=== PATIENT | male | born 1945 | race Caucasian/White ===

== ENCOUNTER → 2017-05-03 08:58 | Outpatient (CLI) | payer MEDICARE, OTHER, SELFPAY ==
[2017-05-03 10:40] LABS: Absolute Lymphocyte Count 1.47 X10^3/ul (0.83-4.51); Absolute Neutrophil Count 4.3 X10^3/uL (2.0-7.7); Basophil# 0.02 X10^3/uL; Basophil% 0.3 % (0-1); Eosinophil# 0.11 X10^3/uL; Eosinophils% 1.7 % (0-5); Hemoglobin 13.9 g/dl (13.0-16.5); Lymphocyte # 1.47 X10^3/ul (4.0); Mean Corp Hgb Conc 32.3 g/gl (32-36); Mean Corpuscular Hgb 30.2 pg (27.0-32.0); Mean Corpuscular Volume 93.5 fL (80-94); Mean Platelet Vol. 10.1 fl (6.2-12.0); Monocyte# 0.46 X10^3/uL; Monocyte% 7.2 % (0-10); Neutrophil # 4.33 X10^3/uL (2.7-7.7); Neutrophil % 67.6 % (47-70); Platelet Count 190 K/mm3 (150-450); RBC Distribution Width CV 13.2 % (11.6-14.6); RBC Distribution Width SD 44.5 fl (35.1-43.9); White Blood Count 6.4 K/mm3 (4.4-11.0)
[2017-05-03 10:41] LABS: POSITIVE COUNT NO; POSITIVE DIFFERENTIAL NO; POSITIVE MORPHOLOGY NO
[2017-05-03 10:51] LABS: Erythrocyte Sedimentation Rate 20 mm/hr (0-20)
[2017-05-03 13:34] LABS: CRP 8.06 mg/L (0.0-3.0)
== END ==
PROVIDERS: Family Provider Family Medicine; PCP Family Medicine; Visit Provider Orthopaedic Surgery
DX: M25.561 Pain in right knee (principal); M25.562 Pain in left knee; Z96.653 Presence of artificial knee joint, bilateral; Z47.1 Aftercare following joint replacement surgery
CPT/HCPCS: 36415; 85025; 85652; 86140

== ENCOUNTER → 2017-05-06 07:59 | Outpatient (CLI) | payer MEDICARE, OTHER, SELFPAY ==
--- NOTE | 2017-05-06 08:02 | NM_ITS ---
CLINICAL: 71-year-old male with reported history of bilateral knee pain status post right-left hemiarthroplasty approximately 10 years previous. LIMITED 99m Tc MDP THREE PHASE BONE SCINTIGRAPHY COMPARISON: None available FINDINGS: Following the intravenous administration of 26.8 mCi of 99m Tc MDP, three-phase bone acquisitions of the knee articulations reveal: 1. The flow and immediate static blood pool acquisitions demonstrate arterial phase hyperemia manifest in the region of the lateral compartment of the right knee. Venous hyperemia is demonstrated in the lateral compartments of the bilateral knees. 2. Delayed images depict increased tracer concentration defined in the lateral femoral and tibial compartments of the bilateral knees. Mild increased uptake is demonstrated in the tibial component of the right knee hemiarthroplasty anteriorly. 3. The remaining limited skeletal structures are scintigraphically unremarkable. NM/Bone Scan Three Phase IMPRESSION: 1. The increase arterial phase distribution identified in the lateral compartment of the right knee, increased blood pool activity and facilitated delayed radiopharmaceutical concentration identified in the lateral compartments of the bilateral knees is most consistent with a component of synovial inflammation, internal derangement or severe degenerative arthritis. 2. Enhanced uptake defined in the tibial component of the painful right knee hemiarthroplasty is consistent with a high likelihood of loosening in the setting of operative intervention > 2 years prior to the current presentation. If an infectious etiology is a diagnostic consideration, correlation with labeled leukocyte imaging is recommended. Electronically Signed: Sanju Elam DO at 14:28 EST Tel , Service support ,
== END ==
PROVIDERS: Family Provider Family Medicine; PCP Family Medicine; Visit Provider Orthopaedic Surgery
DX: Z47.1 Aftercare following joint replacement surgery (principal); Z96.653 Presence of artificial knee joint, bilateral
CPT/HCPCS: 78315

== ENCOUNTER 2017-12-23 08:12 | Day surgery (SDC) | payer MEDICARE, OTHER, SELFPAY ==
[2017-12-23] VITALS (8 sets, daily range): BP systolic 108–156; BP diastolic 64–82; PULSE 55–65; RESP 16; TEMP 36.2–36.9; O2SAT 92–99; BMI 38.0
--- NOTE | 2017-12-23 09:56 | HP.PCM_ITS ---
Problem List (1) Family history of colon cancer in father Status: Acute History of Present Illness Date of Admission: 12/23/17 The patient is a 72 year old M who has a family history with multiple family members with colon cancer. He is near his relative would be brother and a f ather. He states that remotely he had colon polyps. He denies any bright red blood per rectum or melena. He is not on any anticoagulants. He is most recent colonoscopy was 5 years ago. He otherwise enjoys stable health. Past Medical History Past Medical History (Chronic Problems): Chronic Problems GERD (gastroesophageal reflux disease) (Chronic) BPH (benign prostatic hyperplasia) (Chronic) Benign hypertension (Chronic) Allergies Iodinated Contrast- Oral and IV Dye [CT] Allergy (Verified 12/23/17 08:31) Rash oxycodone Allergy (Verified 12/23/17 08:31) Diarrhea esomeprazole Adverse Reaction (Verified 12/23/17 08:31) Diarrhea lansoprazole Adverse Reaction (Verified 12/23/17 08:31) Diarrhea lisinopril [From Prinivil] Adverse Reaction (Verified 12/23/17 08:31) Other gives pt a cough metoprolol Adverse Reaction (Verified 12/23/17 08:31) Other nortriptyline Adverse Reaction (Verified 12/23/17 08:31) Other omeprazole Adverse Reaction (Verified 12/23/17 08:31) Diarrhea Penicillins Adverse Reaction (Verified 12/23/17 08:31) Other does not do anything/ not effective FABRIC SOFTNER Allergy (Uncoded 12/23/17 08:31) Rash Home Medications: Ambulatory Orders Medication Instructions Recorded Acetaminophen [Tylenol] 650 mg PO BID 05/20/16 Finasteride [Proscar] 5 mg PO DINNER 05/20/16 Hydrochlorothiazide [Hctz] 25 mg PO DAILY 05/20/16 Losartan Potassium [Cozaar] 100 mg PO QHS 05/20/16 Pantoprazole Sodium [Protonix] 40 mg PO BID 05/20/16 Potassium Chloride [Klor-Con M20] 20 meq PO BID 05/20/16 Sertraline HCl [Zoloft] 25 mg PO QHS 05/20/16 Tamsulosin HCl [Flomax] 0.4 mg PO DINNER 05/20/16 Meloxicam 15 mg PO QHS 09/24/18 Surgical History: appendectomy, cholecystectomy, total knee arthroplasty Smoking Status: Former smoker Review of Systems Constitutional: Denies: Anorexia HEENT: Denies: Difficulty Hearing Cardiovascular: Denies: Chest Pain Respiratory: Denies: Cough Gastrointestinal: Denies: Abdominal Pain Genitourinary: Denies: Dysuria Endocrine: Denies: Change in Body Habitus VTE Information - Inpt Only VTE Present on Admission: No Patient Problems: Active and Suspected Problems Family history of colon cancer in father (Acute) - Physical Exam General: Alert, Oriented x3, Cooperative, No apparent distress HEENT: Atraumatic Oral: Moist Mucosa Neck: Supple Lungs: Clear to auscultation Cardiovascular: Regular rate, Regular Rhythm Abdomen: Soft, Non Tender, Obese Extremities: No Calf Tenderness Skin: No rashes Musculoskeletal: No Tenderness to Palpation of Joints or Extremities Neurological: Cranial nerves II-XII grossly intact Vital Signs Temp Pulse Resp BP Pulse Ox 98.5 F 65 16 135/74 H 93 12/23/17 08:32 12/23/17 08:32 12/23/17 08:32 12/23/17 08:32 12/23/17 08:32 Oxygen Delivery Method Room Air Weight: 242 lb 15.19 oz Body Mass Index (BMI) 38.0 Assessment/Plan All Active Problems Family history of colon cancer in father (Acute) I am recommending a screening colonoscopy with possible biopsy or polypectomy is indicated. The patient has had an opportunity to ask and have questions answered. We have scheduled and will proceed as noted. Based upon family history he likely will require endoscopy every 5 years. Carlos Mo M.D., F.A.C.S.
--- NOTE | 2017-12-23 10:14 | OP.ENDO_ITS ---
Patient Name: Evi Coello Procedure Date: 12/23/2017 9:46 AM Date of : 1945 Age: 72 Procedure: Colonoscopy Indications: High risk colon cancer surveillance: Personal history of colonic polyps, Family history of colon cancer in a first-degree relative Providers: Carlos Mo MD Referring MD: Carlos Mo MD Medicines: Midazolam 3.5 mg IV, Meperidine 100 mg IV Patient Profile: Last Colonoscopy: 5 years ago. Complications: No immediate complications. Procedure: Pre-Anesthesia Assessment: - Prior to the procedure, a History and Physical was performed, and patient medications and allergies were reviewed. The patient's tolerance of previous anesthesia was also reviewed. The risks and benefits of the procedure and the sedation options and risks were discussed with the patient. All questions were answered, and informed consent was obtained. Prior Anticoagulants: The patient has taken no previous anticoagulant or antiplatelet agents. ASA Grade Assessment: II - A patient with mild systemic disease. After reviewing the risks and benefits, the patient was deemed in satisfactory condition to undergo the procedure. After I obtained informed consent, the scope was passed under direct vision. Throughout the procedure, the patient's blood pressure, pulse, and oxygen saturations were monitored continuously. The colonoscope was introduced through the anus and advanced to the cecum, identified by appendiceal orifice and ileocecal valve. The colonoscopy was performed without difficulty. The patient tolerated the procedure well. The quality of the bowel preparation was adequate to identify polyps. Moderate Sedation: Moderate (conscious) sedation was personally administered by the endoscopist. The following parameters were monitored: oxygen saturation, heart rate, blood pressure, and response to care. Total physician intraservice time was 15 minutes. Scope In: 9:59:46 AM Scope Withdrawal Time 0 hours 6 minutes 57 seconds Scope Out: 10:08:31 AM Total Procedure Duration Time 0 hours 8 minutes 45 seconds Findings: The digital rectal exam findings include non-thrombosed external hemorrhoids, non-thrombosed internal hemorrhoids, internal hemorrhoids that prolapse with straining, but spontaneously regress to the resting position (Grade II) and enlarged prostate. Scattered diverticula were found in the sigmoid colon. The exam was otherwise without abnormality. Impression: - Non-thrombosed external hemorrhoids, non-thrombosed internal hemorrhoids, internal hemorrhoids that prolapse with straining, but spontaneously regress to the resting position (Grade II) and enlarged prostate found on digital rectal exam. - Diverticulosis in the sigmoid colon. - The examination was otherwise normal. - No specimens collected. Recommendation: - Discharge patient to home. - Resume previous diet. - Continue present medications. - Repeat colonoscopy in 5 years for surveillance. Procedure Code(s): --- Professional --- 69215, Colonoscopy, flexible; diagnostic, including collection of specimen(s) by brushing or washing, when performed (separate procedure) G0500, Moderate sedation services provided by the same physician or other qualified health home care scheduler performing a gastrointestinal endoscopic service that sedation supports, requiring the presence of an independent trained observer to assist in the monitoring of the patient's level of consciousness and physiological status; initial 15 minutes of intra-service time; patient age 5 years or older (additional time may be reported with 85570, as appropriate) Diagnosis Code(s): --- Professional --- Z86.010, Personal history of colonic polyps K64.1, Second degree hemorrhoids K64.4, Residual hemorrhoidal skin tags Z80.0, Family history of malignant neoplasm of digestive organs N40.0, Benign prostatic hyperplasia without lower urinary tract symptoms K57.30, Diverticulosis of large intestine without perforation or abscess without bleeding CPT copyright 2017 [employer]. All rights reserved. The codes documented in this report are preliminary and upon medical record coder review may be revised to meet current compliance requirements. Carlos Mo MD 12/23/2017 10:14:27 AM This report has been signed electronically. Number of Addenda: 0 Note Initiated On: 12/23/2017 9:46 AM
== END 2017-12-23 11:07 | disposition home or self-care (01) ==
LOC: EN 08:12 → AC 08:14
PROVIDERS: Family Provider Family Medicine; PCP Family Medicine; Visit Provider Surgery
PROC: 0DJD8ZZ Inspection of Lower Intestinal Tract, Via Natural or Artificial Opening Endoscopic (ICD-10-PCS; CPT 45378; principal; 2017-12-23 09:10)
DX: Z12.11 Encounter for screening for malignant neoplasm of colon (principal); Z86.010 Personal history of colon polyps; Z80.0 Family history of malignant neoplasm of digestive organs; K64.4 Residual hemorrhoidal skin tags; K64.1 Second degree hemorrhoids; N40.0 Benign prostatic hyperplasia without lower urinary tract symptoms; K57.30 Diverticulosis of large intestine without perforation or abscess without bleeding; K21.9 Gastro-esophageal reflux disease without esophagitis; I10 Essential (primary) hypertension; F32.9 Major depressive disorder, single episode, unspecified; Z79.899 Other long term (current) drug therapy; Z87.891 Personal history of nicotine dependence
CPT/HCPCS: G0105; 99152; 99153; J7120